=== PATIENT | male | born 1995 | race Caucasian/White ===

== ENCOUNTER 2017-01-15 02:54 | Emergency (ER) | payer BC, OTHER ==
[2017-01-15 03:01] VITALS: BP 141/77; PULSE 78; RESP 14; TEMP 98.6; O2SAT 95
[2017-01-15] MEDS ORDERED: SKIN ADHESIVE (DERMABOND) 1 EACH TP ONE (03:38)
--- NOTE | 2017-01-15 03:44 | EDPHY ---
H & P Stated Complaint: pt says he was vomiting into a toilet and lid fell onto bridge of nose Time Seen by Provider: 01/15/17 03:14 HPI/ROS: HPI The patient presents after a fall which occurred several hours ago. He was drinking alcohol heavily and had to vomit. Went to the bathroom and was lifting the toilet seat, however the lid fell onto his nose and he sustained a laceration. He has had bleeding without any epistaxis.. REVIEW OF SYSTEMS Constitutional: No fever, no chills. Skin: No rashes. Neurological: No headache. PMHx: Healthy Soc Hx: College student PHYSICAL General Appearance: Alert, no distress Eyes: Pupils equal and round no pallor or injection ENT, Mouth: Mucous membranes moist, there is a 1 cm transverse laceration of the nasal bridge which is superficial, non gaping Respiratory: Breathing comfortably Neurological: A&O, moves all extremities Skin: Warm and dry, no rashes Musculoskeletal: Neck is supple non tender Extremities: symmetrical, full range of motion Psychiatric: Patient is oriented X 3, there is no agitation Source: Patient Exam Limitations: No limitations - Medical/Surgical History Hx Asthma: No Hx Chronic Respiratory Disease: No Hx Diabetes: No Hx Cardiac Disease: No Hx Renal Disease: No Hx Cirrhosis: No Hx Alcoholism: No Hx HIV/AIDS: No Hx Splenectomy or Spleen Trauma: No Other PMH: add - Social History Smoking Status: Current every day smoker Constitutional: Initial Vital Signs Temperature (C) 37 C 01/15/17 02:58 Heart Rate 78 01/15/17 02:58 Respiratory Rate 14 01/15/17 02:58 Blood Pressure 141/77 H 01/15/17 02:58 O2 Sat (%) 95 01/15/17 02:58 O2 Delivery Mode Room Air Allergies/Adverse Reactions: No Known Allergies Allergy (Unverified 01/15/17 03:01) Home Medications: Medication Instructions Recorded NK [No Known Home Meds] 01/15/17 Medical Decision Making Procedures: LACERATION REPAIR Procedure: Laceration repair. Verbal consent was obtained from the patient. The linear 1 cm laceration on the nasal bridge. The wound was scrubbed, draped and explored to its base with a gloved finger. There were no deep structures involved. No tendon injury was identified. . The wound was repaired with Dermabond. The wound repair was simple. The procedure was performed by myself. Differential Diagnosis: This is a 22-year-old male who presents with nasal bridge laceration which is superficial and non gaping. Plan for repair with Dermabond, doubt any deep structure involvement. Departure - Departure Disposition: Home, Routine, Self-Care Clinical Impression: Laceration of nose Qualifiers: Encounter type: initial encounter Qualified Code(s): S01.21XA - Laceration without foreign body of nose, initial encounter Condition: Good Instructions: Facial Laceration (ED) Referrals: NONE *PRIMARY CARE P,. [Primary Care Provider] - As per Instructions Stand Alone Forms: Work Excuse
== END 2017-01-15 03:55 | disposition home or self-care (01) ==
PROC: 09QKXZZ Repair Nasal Mucosa and Soft Tissue, External Approach (ICD-10-PCS; principal; 2017-01-15)
DX: S01.21XA Laceration without foreign body of nose, initial encounter (principal); F17.200 Nicotine dependence, unspecified, uncomplicated; W20.8XXA Other cause of strike by thrown, projected or falling object, initial encounter; Y92.002 Bathroom of unspecified non-institutional (private) residence as the place of occurrence of the external cause

== ENCOUNTER 2017-05-15 17:03 | Emergency (ER) | payer OTHER ==
[2017-05-15] MEDS ORDERED: IBUPROFEN 600 MG TAB PO ONE ×2 (17:24)
--- NOTE | 2017-05-15 17:29 | EDPHY ---
General Narrative: CHIEF COMPLAINT: Hand injury HISTORY OF PRESENT ILLNESS: Patient was working with a tension fco at [employer]. He said the tension fco was holding a rope when it snapped. The fco spun quickly and struck him in the base of the left thumb. This happened approximately 2 hours ago. He has significant pain and swelling. Some tingling of the area. The pain is only involving the thumb, and it is worse at the base of the thumb. No pain in the ipsilateral hand, wrist, forearm or elbow. No numbness or tingling elsewhere. No laceration. Pain is minimally improved at rest. No other associated complaints or modifying factors. REVIEW OF SYSTEMS: Ten systems reviewed and are negative unless otherwise noted in the HPI PAST MEDICAL HISTORY: None PAST SURGICAL HISTORY: None SOCIAL HISTORY: Occasional nicotine vaporizer. No illicit substance use. FAMILY HISTORY: Noncontributory EXAMINATION General Appearance: Alert, no distress Cardiovascular: Pulses normal throughout. Symmetric radial pulses 2+. Brisk cap refill Neurological: A&O, sensory symmetric, strength symmetric of the interossei. Skin: Warm and dry, no rash. No laceration. There is ecchymoses the base of the left thumb over the thenar eminence. Extremities: Significant edema and tenderness of the left thenar eminence. There is no tenderness of the distal phalanx of the left thumb. No tenderness of the hand or wrist. No tenderness of the left snuffbox. Range of motion is intact but painful. This does include opposition, abduction and adduction. Psychiatric: Mood and affect normal DIFFERENTIAL DIAGNOSES: Including but not limited to fracture, contusion, hematoma, sprain, strain MDM: 5:20 p.m. Crush injury to left hand. This was not an extensive duration of crush. This was a high force blunt trauma to the hand that was very brief. He has significant swelling over the thenar eminence. Pain at the base of the thumb only. X-ray has been ordered. He is neuro intact. Ibuprofen ordered. 6:00 p.m. Closed fracture of the base of the left thumb, proximal phalanx, ulnar side. He is neurovascular intact distally. No injury elsewhere. No laceration. He will be placed in a Velcro thumb spica splint. He will be instructed follow up with worker's compensation [facility] with hand surgery follow-up. ED precautions discussed. We discussed ibuprofen 600-800 mg every 8 hours as needed. Short course of pain medication for the next 2 nights. He is comfortable with this plan. He is discharged home stable condition, neurovascular intact ED Precautions: Worsening pain. Erythema, edema, cyanosis, pallor, paresthesia or anesthesia. - Diagnostics Imaging Results: Imaging Impressions Hand X-Ray 05/15/17 17:24 Impression: Obliquely oriented nondisplaced fracture involving the ulnar aspect of the proximal phalanx of the left thumb at the first metacarpophalangeal joint. - History Smoking Status: Former smoker - Objective Vital Signs: Initial Vital Signs Temperature (C) 97.5 F 05/15/17 17:11 Heart Rate 73 05/15/17 17:11 Respiratory Rate 16 05/15/17 17:11 Blood Pressure 145/103 H 05/15/17 17:11 O2 Sat (%) 98 05/15/17 17:11 O2 Delivery Mode Room Air Allergies/Adverse Reactions: No Known Allergies Allergy (Verified 05/15/17 17:10) Home Medications: Medication Instructions Recorded NK [No Known Home Meds] 01/15/17 Medications Given: Discontinued Medications Ibuprofen (Motrin) 600 mg PO EDNOW ONE Stop: 05/15/17 17:25 Last Admin: 05/15/17 17:37 Dose: 600 mg Oxycodone/Acetaminophen (Percocet 5/325mg Prepack#4) 1 btl TAKEHOME EDNOW ONE Stop: 05/15/17 18:02 Last Admin: 05/15/17 18:43 Dose: 1 btl Departure - Departure Disposition: Home, Routine, Self-Care Clinical Impression: Crushing injury of thumb, left Qualifiers: Encounter type: initial encounter Qualified Code(s): S67.02XA - Crushing injury of left thumb, initial encounter Thumb fracture Qualifiers: Encounter type: initial encounter Fracture type: closed Phalanx: proximal Fracture alignment: nondisplaced Laterality: left Qualified Code(s): S62.515A - Nondisplaced fracture of proximal phalanx of left thumb, initial encounter for closed fracture Condition: Good Instructions: Oxycodone/Acetaminophen (By mouth), Thumb Fracture (ED), Crush Injury (ED) Additional Instructions: 1. Ibuprofen 600-800 mg every 8 hours as needed 2. Pain medication as prescribed as needed 3. Worker's compensation follow-up for definitive care 4. ED precautions as discussed Referrals: NONE *PRIMARY CARE P,. [Primary Care Provider] - As per Instructions David Hanna MD [Medical Doctor] - As per Instructions Stand Alone Forms: Work Comp Follow Up, Work Excuse
[2017-05-15] MEDS ORDERED: OXYCODONE/APAP 5/325MG PREPACK#4 BTL TAKEHOME ONE ×2 (18:01)
[2017-05-15 18:48] VITALS: BP 150/76; PULSE 61; RESP 18; TEMP 98.1; O2SAT 95
== END 2017-05-15 18:59 | disposition home or self-care (01) ==
DX: S62.515A Nondisplaced fracture of proximal phalanx of left thumb, initial encounter for closed fracture (principal); Z87.891 Personal history of nicotine dependence; W22.8XXA Striking against or struck by other objects, initial encounter
CPT/HCPCS: L3807